=== PATIENT | female | born 1965 | race Caucasian/White ===

== ENCOUNTER 2017-08-12 12:39 | Outpatient (CLI) | payer OTHER ==
--- NOTE | 2017-08-12 16:37 | MMO ---
BILATERAL SCREENING MAMMOGRAMS: DATE: 08/12/17 Reference made to mammograms dating back to 11/03/11. This patient's mammogram was interpreted with the assistance of computer-aided detection. FINDINGS: There is heterogeneously dense breast parenchyma bilaterally, which limits the sensitivity of mammog yenny and could obscure underlying pathology. Scattered benign-appearing calcifications of each i[address] st are present, stable appearing. No new dominant mass, suspicious clustering of microcalcification, or architectural distortion. IMPRESSION: BIRADS 2: Benign Finding(s) Annual screening mammography is recommended. POS: [facility]
== END 2017-08-12 12:40 | disposition home or self-care (01) ==
LOC: MAMMO 12:39
PROVIDERS: ATTEND Family Medicine
DX: Z12.31 Encounter for screening mammogram for malignant neoplasm of breast (principal)
CPT/HCPCS: 77067; G0202